=== PATIENT | male | born 1960 | race Caucasian/White ===

== ENCOUNTER → 2016-10-24 | Outpatient (REF) | payer BC | LOC: M SFHCLERA 11:22 | PROVIDERS: ATTEND Family Medicine | DX: Z95.1 Presence of aortocoronary bypass graft (principal); E78.00 Pure hypercholesterolemia, unspecified ==

== ENCOUNTER → 2020-07-05 | Outpatient (CLI) | payer BC | LOC: M LABSMTC 10:27 | PROVIDERS: ATTEND Internal Medicine Cardiovascular Disease | DX: Z20.828 Contact with and (suspected) exposure to other viral communicable diseases (principal) | CPT/HCPCS: C9803; U0003 ==

== ENCOUNTER → 2022-07-29 | Outpatient (CLI) | payer BC | LOC: M RAD 17:22 | PROVIDERS: ATTEND Family Medicine | DX: Z12.2 Encounter for screening for malignant neoplasm of respiratory organs (principal) ==

== ENCOUNTER → 2024-02-09 | Outpatient (CLI) | payer BC | LOC: M RAD 09:07 | PROVIDERS: ATTEND Family Medicine | DX: F17.211 Nicotine dependence, cigarettes, in remission (principal); Z53.9 Procedure and treatment not carried out, unspecified reason ==

== ENCOUNTER → 2024-03-16 | Outpatient (CLI) | payer BC | LOC: M RAD 15:20 | PROVIDERS: ATTEND Family Medicine | DX: Z12.2 Encounter for screening for malignant neoplasm of respiratory organs (principal); F17.211 Nicotine dependence, cigarettes, in remission ==